=== PATIENT | male | born 1960 | race Caucasian/White ===

== ENCOUNTER 2019-04-13 09:59 | Emergency (ER) | payer OTHER ==
[~2019-04-13] VITALS: Ht 172.7 cm; Wt 81.6 kg
[~2019-04-13 09:59] MED LIST: CRESTOR PO
--- OUTSIDE RECORDS SUMMARY | 2019-04-13 10:02 | XMS REPORT ---
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 Allergies, Adverse Reactions, Alerts Allergy Name Allergy Type Status Severity Reaction(s) Onset Date Inactive Date Treating Clinician Comments No Known Drug Allergies DA Active U 2018-08-28 00:00:00 No Known Allergies DA Active U 2014-01-05 00:00:00 Medications This patient has no known medications.
[2019-04-13] MEDS ORDERED: SODIUM CHLORIDE 0.9% 1000ML 1,000 ML IV STA (10:16)
[2019-04-13 10:37] LABS: BASOPHILS % 0.4 % (0.0-1.0); HEMATOCRIT 49.8 % (38.2-49.6); HEMOGLOBIN 16.6 g/dL (14.0-18.0); LYMPHOCYTES # (AUTO) 1.3 (1.0-3.2); LYMPHOCYTES % 16.2 % (18.0-39.1); MEAN CORPUSCULAR HEMOGLOBIN 28.6 pg (28-32); MEAN CORPUSCULAR HGB CONC 33.3 g/dL (31-35); MEAN CORPUSCULAR VOLUME 85.9 fL (81-99); MONOCYTES # (AUTO) 0.7 (0.2-0.8); MONOCYTES % 8.3 % (4.4-11.3); NEUTROPHILS # (AUTO) 6.2 (2.1-6.9); NEUTROPHILS % 74.9 % (38.7-80.0); PLATELET COUNT 273 x10e3/uL (140-360); RED CELL DISTRIBUTION WIDTH 14.2 % (11.7-14.4)
[2019-04-13 10:58] LABS: ALBUMIN/GLOBULIN RATIO 1.3 (0.8-2.0); ANION GAP 12.5 mmol/L (8-16); CALCIUM 9.2 mg/dL (8.4-10.2); CREATININE, SERUM 1.56 mg/dL (0.72-1.25); INR 1.03; MAGNESIUM 2.2 MG/DL (1.3-2.1); PARTIAL THROMBOPLASTIN TIME 26.2 seconds (23.8-35.5); POTASSIUM 3.5 mmol/L (3.5-5.1)
[2019-04-13 11:04] LABS: CREATINE KINASE MB 3.1 ng/mL (0-5.0)
--- NOTE | 2019-04-13 11:04 | Diagnostic Imaging Report ---
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 Comparison studies: None Technique: Axial images were obtained from the skull base to the vertex. Coronal and sagittal images reconstructed from the axial data. Dose modulation, iterative reconstruction, and/or weight based adjustment of the mA/kV was utilized to reduce the radiation dose to as low as reasonably achievable. Radiation dose: Total DLP: 921 mGy*cm. Estimated effective dose: DLP x 0.015 Intravenous contrast: None Findings: Scalp: No abnormalities. Bones: No fractures, blastic or lytic lesions. Brain sulci: Appropriate for age. Ventricles: Normal in size and configuration. No hydrocephalus. Extra-axial spaces: No masses, no fluid collection. Parenchyma: No abnormal densities. No masses, acute hemorrhage, acute or chronic vascular insults. Sellar/suprasellar region: No abnormalities. Craniocervical junction: Patent foramen magnum. No Chiari one malformation. Included paranasal sinuses: Likely changes of prior sinus surgery. Scattered mucosal thickening in the bilateral sphenoid sinuses and ethmoid air cells which are partially opacified. Incidental findings: Atherosclerotic calcifications in the carotid siphons.. IMPRESSION: No acute intracranial abnormalities. Specifically, no mass, acute hemorrhage or cortical infarct. Signed by: Dr. Jayden Gerard M.D. on 04/13/2019 11:01 AM
--- NOTE | 2019-04-13 11:18 | Diagnostic Imaging Report ---
EXAMINATION: CHEST SINGLE (PORTABLE) INDICATION: ^NECK SWELLING ^[id number] ^[id number] COMPARISON: None FINDINGS: AP view TUBES and LINES: None. LUNGS: Lungs are well inflated. Lungs are clear. There is no evidence of pneumonia or pulmonary edema. PLEURA: No pleural effusion or pneumothorax. HEART AND MEDIASTINUM: The cardiomediastinal silhouette is unremarkable. BONES AND SOFT TISSUES: No acute osseous lesion. Right humeral head anchor screw. Soft tissues are unremarkable. UPPER ABDOMEN: No free air under the diaphragm. IMPRESSION: No acute thoracic abnormality. Signed by: Dr. Emanuel Leahy MD on 04/13/2019 11:14 AM
[2019-04-13] MEDS ORDERED: SODIUM CHLORIDE 0.9% 500ML 500 ML IV ONE (13:15)
[2019-04-13] MEDS ORDERED: METHYLPREDNISOLONE SOD SUCC 125 MG/2ML VIAL IV STA (13:44)
[2019-04-13] MEDS ORDERED: FAMOTIDINE 20 MG/2 ML VIAL IV NR (13:45)
[2019-04-13] MEDS ORDERED: DIPHENHYDRAMINE HCL INJ 50 MG/ML VIAL IV NR (13:45)
--- NOTE | 2019-04-13 13:54 | Diagnostic Imaging Report ---
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 Comparison studies: None available at the time of dictation. Technique: Axial, coronal and sagittal images from the skull base to the thoracic inlet. Coronal and sagittal images reconstructed from the axial data. Dose modulation, iterative reconstruction, and/or weight based adjustment of the mA/kV was utilized to reduce the radiation dose to as low as reasonably achievable. Intravenous contrast: 100 cc of Omnipaque 300. Findings: Upper aerodigestive tract: Evaluation of the oral cavity is limited by streak artifact from dental amalgam. No mass or enhancing abnormality identified to indicate residual or recurrent tumor. Diffuse edema which extends along the left lateral oral pharyngeal wall and left tonsillar fossa to the left supraglottic airway, epiglottis and left piriform sinus is presumably treatment related in this patient with history of prior radiation treated. The upper airway is patent. Soft tissues: Ill-defined soft tissue thickening throughout the left carotid space is presumably treatment related. Reticulation in the subcutaneous fat also related to radiation treatment. Lymph nodes: No radiographically significant adenopathy. Vessels: Patent carotid and vertebral arteries. Anatomical variant retropharyngeal right internal carotid artery at the level of the supraglottis and oral pharynx. Patent right internal jugular vein. 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 Glands (thyroid, parotid and submandibular): Normal in size and symmetric. No masses. Paranasal sinuses: Scattered mucosal thickening in the bilateral ethmoid air cells and sphenoid sinuses which are partially opacified. Left maxillary sinus is partially opacified by retention cyst or polyp. Minimal mucosal thickening in the right maxillary sinus. Suspect changes of prior sinus surgery with bilateral medial antrostomies which could be correlated with surgical history. Orbits: No abnormalities. Paranasal sinuses: Clear. Temporal bones: No gross abnormalities. Skull base and facial bones: Intact. Cervical spine: Straightened cervical curvature may be positional. Mildly degenerated C3-C4 and C5-C6 discs with small disc osteophyte complexes which result in only mild canal stenosis. Moderate right C5-C6 foraminal stenosis due to uncovertebral arthrosis. IMPRESSION: 1. Artifact limits evaluation of the oral cavity. No discrete mass or focal enhancement to indicate residual or recurrent tumor. Correlation with direct visualization of the oral cavity recommended. 2. No radiographically significant cervical lymphadenopathy. 3. Upper aerodigestive tract edema without upper airway compromise and increased soft tissue density in the left neck is most likely treatment-related. No abscess. 4. Occluded left internal jugular vein. 5. Inflammatory changes in the paranasal sinuses. Signed by: Dr. Jayden Gerard M.D. on 04/13/2019 1:51 PM
[2019-04-13] MEDS ORDERED: DIPHENHYDRAMINE HCL INJ 50 MG/ML VIAL ONE (13:59)
[2019-04-13] MEDS ORDERED: IOPAMIDOL 370 MG/ML 200 ML INFUS..BTL INJ ONE (17:31)
[2019-04-13] MEDS ORDERED: SODIUM CHLORIDE 0.9% 50ML 50 ML ONE (17:31)
== END 2019-04-13 15:25 | disposition home or self-care (01) ==
LOC: ER 09:59
DX: T78.40XA Allergy, unspecified, initial encounter (principal); Z85.810 Personal history of malignant neoplasm of tongue
CPT/HCPCS: 36415; 70450; 70491; 71045; 80053; 82550; 82553; 83735; 84484; 85025; 85610; 85730; 93005; 99284; J1200; J2930; J7030; J7040; Q9967

== ENCOUNTER 2025-02-13 06:11 | Emergency (ER) | payer MEDICARE, OTHER ==
[~2025-02-13] VITALS: Ht 175.3 cm; Wt 81.6 kg
[2025-02-13 06:25] VITALS: RESP 18; TEMP 98.1
[2025-02-13 06:30] VITALS: PULSE 85
[2025-02-13 06:50] VITALS: BP 120/83; O2SAT 98
== END 2025-02-13 07:13 | disposition home or self-care (01) ==
LOC: ER 06:18
DX: M79.89 Other specified soft tissue disorders (principal); Z85.810 Personal history of malignant neoplasm of tongue; Z79.69 Long term (current) use of other immunomodulators and immunosuppressants
CPT/HCPCS: 99282